=== PATIENT | male | born 1950 | race Caucasian/White ===

== ENCOUNTER 2019-05-07 15:22 | Outpatient (CLI) | payer OTHER | END 2019-05-07 23:59 | disposition home or self-care (01) | LOC: CARD 15:22 | PROVIDERS: ATTEND Orthopaedic Surgery | DX: J44.9 Chronic obstructive pulmonary disease, unspecified (principal); M95.4 Acquired deformity of chest and rib | CPT/HCPCS: 71046; 94060; 94726; 94729 ==